=== PATIENT | female | born 1965 ===

== ENCOUNTER 2018-04-27 09:57 | Emergency (ER) | payer OTHER ==
--- NOTE | 2018-04-27 10:01 | UC ---
Upper Extremity HPI - HPI Summary HPI Summary: 53 yo female presents with right elbow pain. She speaks a moderate amount of korean, but prefers to speak Mandarin as her [place] language - therefore an audio hand mica plate layer was used from here on out. She tells me that she tripped and fell on 01/04/18 and landed on her right elbow. Her pain persisted for the next 2 days and she says that she was seen and XRs were taken and said to be negative. Since that time she has been having pain with lifting and with palpation, but not with ROM. She has not been taking anything for pain. Denies numbness or tingling. - History of Current Complaint Stated Complaint: ARM INJURY Time Seen by Provider: 04/27/18 10:01 Hx Obtained From: Patient Onset/Duration: Sudden Onset Severity Initially: Moderate Severity Currently: Moderate Pain Intensity: 7 Pain Scale Used: 0-10 Numeric - Allergies/Home Medications Allergies/Adverse Reactions: Allergies Allergy/AdvReac Type Severity Reaction Status Date / Time No Known Allergies Allergy Verified 04/27/18 10:26 PMH/Surg Hx/FS Hx/Imm Hx - Additional Past Medical History Additional PMH: None - Surgical History Surgical History: None - Family History Known Family History: Positive: None - Social History Occupation: Employed Full-time Lives: With Family Alcohol Use: None Substance Use Type: None Smoking Status (MU): Never Smoked Tobacco Review of Systems Constitutional: Negative Skin: Negative Respiratory: Negative Cardiovascular: Negative Neurovascular: Negative Musculoskeletal: Other: - Right elbow pain Neurological: Negative Psychological: Negative All Other Systems Reviewed And Are Negative: Yes Physical Exam - Summary Physical Exam Summary: GENERAL: NAD. WDWN. No pain distress. SKIN: No rashes, sores, lesions, or open wounds. CHEST: No accessory muscle use. Breathing comfortably and in no distress. CV: Pulses intact radial and ulnar. Cap refill <2seconds MSK: RIGHT ELBOW: Mild TTP over lateral epicondyle. FROM without pain. Strength 5/5 including compensator strength. No edema or obvious bony deformities. She voluntarily forcefully extends her elbow to demonstrate to me that it pops if she does this. NEURO: Alert. Sensations intact hand and all fingers. PSYCH: Age appropriate behavior. Triage Information Reviewed: Yes Vital Signs: Vital Signs: Temp Pulse Resp BP Pulse Ox 98.7 F 98 16 105/60 100 04/27/18 10:09 04/27/18 10:09 04/27/18 10:09 04/27/18 10:09 04/27/18 10:09 Vital Signs Reviewed: Yes Upper Extremity Course/Dx - Course Course Of Treatment: XR: IMPRESSION: NO EVIDENCE FOR FRACTURE. Will refer to Ortho for her ongoing elbow pain - Differential Dx/Diagnosis Provider Diagnoses: Right elbow pain Discharge - Sign-Out/Discharge Documenting (check all that apply): Patient Departure All imaging exams completed and their final reports reviewed: Yes - Discharge Plan Condition: Stable Disposition: HOME Prescriptions: Ibuprofen 400 mg PO Q6H PRN #30 tablet PRN Reason: Pain Patient Education Materials: Elbow Sprain (ED) Referrals: No Primary Care Phys,NOPCP [Primary Care Provider] - Megan Orosco MD [Medical Doctor] - As Soon As Possible Additional Instructions: If you develop a fever, shortness of breath, chest pain, new or worsening symptoms - please call your PCP or go to the ED. 1) Please call Orthopedics at the number below to schedule a follow up appointment - Billing Disposition and Condition Condition: STABLE Disposition: Home
--- NOTE | 2018-04-27 11:21 | RAD ---
INDICATION: Right elbow pain. TECHNIQUE: 4 views of the right elbow were obtained. FINDINGS: The bones are in normal alignment. No joint effusion or fracture is seen. Joint spaces appear maintained. IMPRESSION: NO EVIDENCE FOR FRACTURE.
== END 2018-04-27 11:50 | disposition home or self-care (01) ==
LOC: UCEAST 09:57
DX: M25.521 Pain in right elbow (principal); W01.0XXA Fall on same level from slipping, tripping and stumbling without subsequent striking against object, initial encounter; Y92.9 Unspecified place or not applicable
CPT/HCPCS: 99202; G0463